=== PATIENT | male | born 1965 | race Caucasian/White ===

== ENCOUNTER 2017-01-19 07:41 | Inpatient (IN) | payer OTHER ==
[~2017-01-19 07:41] MED LIST: ACETAMINOPHEN 500 MG TAB PO ONE; GABAPENTIN 300 MG CAP PO ONE; ceFAZolin 2 GM/DEXTROSE 100 ML IV ONE
[2017-01-19] MEDS ORDERED: CHLORHEXIDINE GLUC HIBICLENS 118 ML BTL TP ONE (08:25)
[2017-01-19] MEDS ORDERED: THROMBIN (BOVINE) 5,000 UNIT VIAL TP ONE (08:25)
[2017-01-19] MEDS ORDERED: BACITRACIN 50,000 UNITS/10 ML SYR IRR ONE (08:26)
[2017-01-19] MEDS ORDERED: BUPIVACAINE 0.25% 30 ML SDV ONE (08:26)
[2017-01-19] MEDS ORDERED: GABAPENTIN 300 MG CAP ONE (08:32)
[2017-01-19] MEDS ORDERED: CEFAZOLIN 2 GM/DEXTROSE/100 ML BAG IV ONE (08:32)
[2017-01-19] MEDS ORDERED: ACETAMINOPHEN 500 MG TAB ONE (08:32)
[2017-01-19 08:35] LABS: % IMMATURE GRANULYOCYTES 0.4 % (0.0-1.1); ABSOLUTE IMMATURE GRANULOCYTES 0.03 10^3/uL (0.00-0.10); ADD DIFF? NO; ADD MORPH? NO; ADD SCAN? NO; ATYPICAL LYMPHOCYTE FLAG 10 (0-99); FRAGMENT RBC FLAG 0 (0-99); HEMATOCRIT 50.6 % (40.0-51.0); HEMOGLOBIN 18.1 g/dL (13.7-17.5); LEFT SHIFT FLG 0 (0-99); LIPEMIA HEMOLYSIS FLAG 90 (0-99); MEAN CELL HEMOGLOBIN 30.3 pg (27.9-34.1); MEAN CELL HEMOGLOBIN CONCENTR. 35.8 g/dL (32.4-36.7); MEAN CELL VOLUME 84.8 fL (81.5-99.8); MEAN PLATELET VOLUME 8.9 fL (8.7-11.7); PLATELET CLUMPS FLAG 10 (0-99); PLATELET COUNT 261 10^3/uL (150-400); RED BLOOD CELL COUNT 5.97 10^6/uL (4.40-6.38); RED CELL DISTRIBUTION WIDTH 12.8 % (11.5-15.2)
[2017-01-19] MEDS ORDERED: LR 1,000 ML IV ONE (08:44)
[2017-01-19] MEDS ORDERED: MIDAZOLAM 2 MG/2 ML VIAL IVP ONE (08:55)
--- NOTE | 2017-01-19 08:55 | PDANEPAE ---
ANE History of Present Illness C3-4 ACDF ANE Past Medical History - Cardiovascular History Hx Arrhythmias: Yes Cardiovascular History Comment: Afib - CONTROLLED SINCE APR 2016 - Pulmonary History Hx COPD: No Hx Asthma/Reactive Airway Disease: No Hx Recent Upper Respiratory Infection: No Hx Oxygen in Use at Home: No Hx Sleep Apnea: Yes Sleep Apnea Screening Result - Last Documented: Positive Pulmonary History Comment: POS NGHIA - CPAP - Neurologic History Hx Cerebrovascular Accident: No Hx Seizures: No Hx Dementia: No - Endocrine History Hx Diabetes: No - Renal History Hx Renal Disorders: No - Liver History Hx Hepatic Disorders: No - Neurological & Psychiatric Hx Hx Neurological and Psychiatric Disorders: No - Cancer History Hx Cancer: No Cancer History Comment: 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 - Congenital Disorder History Hx Congenital Disorders: No - GI History Hx Gastrointestinal Disorders: No - Other Health History Other Health History: none - Chronic Pain History Chronic Pain: No - Surgical History Prior Surgeries: R KNEE SURG ANE Review of Systems Review of systems is: negative Review of Systems: - Exercise capacity Exercise capacity: >=4 METS METS (RN): 4 METS ANE Patient History - Allergies Allergies/Adverse Reactions: No Known Allergies Allergy (Unverified 12/09/16 14:27) - Home Medications Home medications: home medication list seen and reviewed Home Medications: Digoxin 12/09/16 [Last Taken 01/19/17 06:00] Flecainide Acetate 12/09/16 [Last Taken 01/19/17 06:00] - NPO status NPO Status: no food or drink >8 hours NPO Since - Liquids (Date): 01/18/17 NPO Since - Liquids (Time): 23:00 NPO Since - Solids (Date): 01/18/17 NPO Since - Solids (Time): 15:00 - Anes Hx Anes Hx: no prior problems - Smoking Hx Smoking Status: Never smoked - Family Anes Hx Family Anes Hx: none Family Hx Anesthesia Complications: none ANE Labs/Vital Signs - Labs Result Diagrams: 01/19/17 08:25 - Vital Signs Blood Pressure: 153/90 Heart Rate: 74 Respiratory Rate: 16 O2 Sat (%): 94 Height: 193.04 cm Weight: 122.47 kg ANE Physical Exam - Airway Neck exam: FROM Mallampati Score: Class 1 - Pulmonary Pulmonary: no respiratory distress - Cardiovascular Cardiovascular: regular rate and rhythym - ASA Status ASA Status: II ANE Anesthesia Plan Anesthesia Plan: general endotracheal anesthesia
--- NOTE | 2017-01-19 09:06 | PDHPUP ---
History & Physical Update H&P update statement: This history and physical update is based on an assessment of the patient which was completed after admission or registration (within 24 hours), but prior to the surgery/procedure. H&P update: H&P reviewed & patient examined, no change in patient's condition since H&P completed
[2017-01-19] MEDS ORDERED: REMIFENTANIL HCL 1 MG VIAL ONE (09:29)
[2017-01-19] MEDS ORDERED: HYDROmorphONE/DILAUDID 2 MG/ML INJ ONE (09:29)
[2017-01-19] MEDS ORDERED: PROPOFOL/EMULSION 500 MG/50 ML BOTTLE IV ONE (09:29)
[2017-01-19] MEDS ORDERED: LIDOCAINE 2% 100 MG/5 ML SYR ONE (09:29)
[2017-01-19] MEDS ORDERED: ROCURONIUM 50 MG/5 ML VIAL ONE (09:29)
[2017-01-19] MEDS ORDERED: DEXAMETHASONE 4 MG/ML VIAL ONE (09:29)
[2017-01-19] MEDS ORDERED: ONDANSETRON 4 MG/2 ML VIAL ONE (09:29)
[2017-01-19] MEDS ORDERED: PROPOFOL 200 MG/20 ML VIAL ONE (09:29)
[2017-01-19] MEDS ORDERED: fentaNYL 100 MCG/2 ML INJ ONE (09:29)
[2017-01-19] MEDS ORDERED: PHENYLEPHRINE HCL 100 MCG/ML SYR ONE (10:23)
[2017-01-19] MEDS ORDERED: ONDANSETRON 4 MG/2 ML VIAL IVP PRN ×2 (10:33→12:04)
[2017-01-19] MEDS ORDERED: HYDROmorphONE/DILAUDID 1 MG/ML INJ IVP PRN (10:33)
[2017-01-19] MEDS ORDERED: DEXAMETHASONE 4 MG/ML VIAL IVP PRN (10:33)
[2017-01-19] MEDS ORDERED: fentaNYL 100 MCG/2 ML INJ IVP PRN (10:33)
[2017-01-19] MEDS ORDERED: LABETALOL HCL 50 MG/10 ML SYR IVP PRN (10:33)
[2017-01-19] MEDS ORDERED: OXYCODONE/APAP 5/325 TAB PO PRN (10:33)
[2017-01-19] MEDS ORDERED: ACETAMINOPHEN 500 MG TAB PO PRN (10:33)
[2017-01-19] MEDS ORDERED: MEPERIDINE 25 MG/ML SYR IVP PRN (10:33)
[2017-01-19] MEDS ORDERED: NALOXONE HCL 0.4 MG/ML INJ IVP PRN (10:33)
[2017-01-19] MEDS ORDERED: PROMETHAZINE HCL 25 MG/ML INJ IVP PRN (10:33)
[2017-01-19] MEDS ORDERED: HYDROCODONE/APAP 5/325 TAB PO PRN (10:33)
--- NOTE | 2017-01-19 10:34 | POSTANESTH ---
Post Anesthetic Evaluation Cardiovascular Status: Normal, Stable, Similar to Pre-Op Cond Respiratory Status: Similar to Pre-op Cond. Level of Consciousness/Mental Status: Can Participate in Eval, Mildly Sleepy, Arousable Pain Control: Adequate, Prn Tx Ordered Nausea/Vomiting Control: Adequate, Prn Tx Ordered Complications Possibly Related to Anesthesia: None Noted
[2017-01-19] MEDS ORDERED: ONDANSETRON DISINTEGRATING 4 MG TAB PO PRN (12:04)
[2017-01-19] MEDS ORDERED: LACTULOSE 20 GM/30 ML UDCUP PO PRN (12:04)
[2017-01-19] MEDS ORDERED: MAGNESIUM HYDROXIDE 30 ML UDCUP PO PRN (12:04)
[2017-01-19] MEDS ORDERED: BISACODYL 10 MG SUPP PR PRN (12:04)
--- NOTE | 2017-01-19 12:11 | SOAPPROG ---
SOAP Progress Note Assessment/Plan: Assessment: 51 yo M sp C3/4 ACDF with csf leak Plan: neuro: stable to ICU, keep lumbar drain open to drain at 10-20 ml/hour hard collar please call with neuro changes 01/19/17 12:09 Subjective: + neck pain, no arm pain, no headaches. Objective: Vital Signs Temp Pulse Resp BP Pulse Ox 37.3 C 74 16 153/90 H 94 01/19/17 08:38 01/19/17 09:34 01/19/17 09:34 01/19/17 09:34 01/19/17 09:34 Laboratory Results 01/19/17 08:25 awake, alert PERRL, no facial droop WONG x 4 + light touch ICD10 Worksheet Patient Problems: Problems Problem Status Onset Fusion of spine of cervical region Acute - ICD10 Problem Qualifiers (1) Fusion of spine of cervical region
[2017-01-19] MEDS: oxyCODONE IR 5 MG TAB PO PRN ×3 (14:17→22:03)
[2017-01-19] MEDS: ACETAMINOPHEN 500 MG TAB PO SCH ×2 (14:17→21:15)
[2017-01-19] MEDS: ceFAZolin 2 GM/DEXTROSE 100 ML IV SCH ×2 (14:17→21:16)
[2017-01-19] MEDS: NS W/ 20 KCl/L 1,000 ML IV SCH (14:18)
--- NOTE | 2017-01-19 15:37 | GOP ---
[f rep st] OPERATIVE REPORT DATE OF OPERATION: 01/19/2017 SURGEON: Darshan Ambrose MD NEUROSURGEON: Darshan Ambrose MD CLAIMS CLERK: SARAH Reynoso ANESTHESIA: General endotracheal. 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 Progressive cervical spondylitic myelopathy. 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 Progressive cervical spondylitic myelopathy. PROCEDURE PERFORMED: Complete C3-4 anterior cervical diskectomy and arthrodesis with a 12 mm structural PEEK interbody spacer and local autograft. Partial C4 vertebral corpectomy. Repair of cerebrospinal fluid leak. Placement of a 23 mm LnK CastleLoc-P anterior cervical plate with self-drilling screws at C3-4. Use of intraoperative microscopy and fluoroscopy. FINDINGS: ESTIMATED BLOOD LOSS: 50 cc. INDICATIONS: The patient is a 51-year-old man with myelopathic symptoms secondary to a large C3-4 disk herniation causing severe central canal stenosis and spinal cord compression. He presents now for surgical decompression and stabilization. DESCRIPTION OF PROCEDURE: After informed consent was obtained, the patient was taken to the operating room and placed in the supine position with the head in the halter retractor system. The anterior cervical region was prepped and draped in sterile fashion. After fluoroscopic localization of the correct levels, the subcutaneous and intramuscular tissues were infiltrated with local anesthesia. A horizontal incision was then created at the level of the C3-4 interspace after fluoroscopic localization. The incision was then carried down through the platysmal layer using monopolar electrocautery and carried in the avascular plane between the sternocleidomastoid and carotid sheath laterally and the strap muscles, trachea and esophagus medially, down to the prevertebral fascia, which was carefully incised with Metzenbaum scissors. The C3-4 interspace was identified and re-verified using intraoperative fluoroscopy. There was a very large calcified anterior disk herniation and osteophyte complex that were carefully removed and harvested for local autograft. The [place] distraction pins were then carefully inserted, and gentle distraction created across the interspace. A complete diskectomy was then performed with the straight and angled curettes, and further removal of the osteophytes with the [place] rongeurs, which were then saved for local autograft. The posterior longitudinal ligament was carefully opened on the left side and, unfortunately, on the right there was a very large calcified disk herniation that extended rostrally and caudally, but especially caudally down into the thecal sac. The large calcified disk herniation was protruding into the dura significantly, and it was very difficult to get around it. It was necessary to drill an extensive amount of bone off the C4 vertebral body, measuring approximately 50%, for a partial C4 vertebral corpectomy in order to get around the disk herniation that was causing severe spinal cord compression. Eventually, I was able to carefully dissect out the herniation and drill off portions of it, and then removed the remainder in its entirety. Unfortunately, there was a small piece of dura that was grown into the calcified disk herniation and there was no way to take the herniation out without removing that small piece of dura as well. Upon identifying the cerebrospinal fluid leak, this was patched with DuraGen and Gelfoam; the latter of which was then removed. There was no further leakage of CSF, and the remaining endplates were carefully prepared. An appropriately sized 9 mm structural PEEK interbody spacer packed with local autograft from the osteophytectomies and partial corpectomy was then placed in the interspace under fluoroscopic image guidance. The distraction was removed, and an appropriately sized 23 mm LnK CastleLoc-P anterior cervical plate was then placed and secured using self-drilling screws under fluoroscopic image guidance. Following re-verification of good position of the plate, screws and interbody spacer using biplanar fluoroscopy, the locking mechanisms were engaged. The wound was again copiously irrigated with antibiotic irrigation and closed in a layered fashion using interrupted Vicryl sutures followed by Steri-Strips on the skin. COMPLICATIONS: None. DISPOSITION: The patient was extubated and transferred to the recovery room in stable condition. /[id number]/MODL MTDD
[2017-01-19] MEDS: METHOCARBAMOL 750 MG TAB PO PRN (17:53)
[2017-01-19] MEDS: POLYETHYLENE GLYCOL 3350 17 GM PKT PO SCH ×2 (17:54→21:16)
[2017-01-19] MEDS: SENNOSIDES/DOCUSATE SODIUM TAB PO SCH (21:14)
[2017-01-19] MEDS: FAMOTIDINE 20 MG TAB PO SCH (21:14)
[2017-01-19] MEDS: FLECAINIDE ACETATE 100 MG TAB PO SCH (21:59)
[2017-01-20] MEDS: METHOCARBAMOL 750 MG TAB PO PRN ×4 (01:08→19:58)
[2017-01-20 04:27] LABS: % IMMATURE GRANULYOCYTES 0.4 % (0.0-1.1); ABSOLUTE IMMATURE GRANULOCYTES 0.05 10^3/uL (0.00-0.10); ADD DIFF? NO; ADD MORPH? NO; ADD SCAN? NO; ATYPICAL LYMPHOCYTE FLAG 0 (0-99); FRAGMENT RBC FLAG 0 (0-99); HEMATOCRIT 48.9 % (40.0-51.0); HEMOGLOBIN 17.1 g/dL (13.7-17.5); LEFT SHIFT FLG 0 (0-99); LIPEMIA HEMOLYSIS FLAG 90 (0-99); MEAN CELL HEMOGLOBIN 30.4 pg (27.9-34.1); MEAN CELL VOLUME 86.9 fL (81.5-99.8); MEAN PLATELET VOLUME 8.8 fL (8.7-11.7); PLATELET CLUMPS FLAG 50 (0-99); PLATELET COUNT 210 10^3/uL (150-400); RED BLOOD CELL COUNT 5.63 10^6/uL (4.40-6.38)
[2017-01-20] MEDS: ACETAMINOPHEN 500 MG TAB PO SCH ×3 (05:10→21:13)
[2017-01-20] MEDS: ceFAZolin 2 GM/DEXTROSE 100 ML IV SCH ×3 (05:10→21:12)
[2017-01-20 05:30] LABS: ANION GAP 12 mEq/L (8-16); CARBON DIOXIDE 20 mEq/l (22-31); CHLORIDE 108 mEq/L (97-110); CREATININE 0.9 mg/dL (0.7-1.3); GLOMERULAR FILTRATION RATE > 60; GLUCOSE 107 mg/dL (70-100); POTASSIUM 4.8 mEq/L (3.5-5.2); SODIUM 140 mEq/L (134-144)
[2017-01-20] MEDS: FAMOTIDINE 20 MG TAB PO SCH ×2 (08:01→20:00)
[2017-01-20] MEDS: SENNOSIDES/DOCUSATE SODIUM TAB PO SCH ×2 (08:01→20:00)
[2017-01-20] MEDS: POLYETHYLENE GLYCOL 3350 17 GM PKT PO SCH ×3 (08:01→21:12)
[2017-01-20] MEDS: DIGOXIN 250 MCG TAB PO SCH (08:03)
[2017-01-20] MEDS: FLECAINIDE ACETATE 100 MG TAB PO SCH ×2 (08:03→20:01)
--- NOTE | 2017-01-20 08:12 | NEUSURGPN ---
Assessment/Plan: Assessment: 51 yo M sp C3/4 ACDF with csf leak Plan: to ICU, keep lumbar drain open to drain at 10-20 ml/hour. Plan to d/c on Monday will need to hold Lovenox prior to pull. Continue hard collar PT/OT/CONTACT MANAGER Continue ELDON drain DVT prophx: TEDs, SCDs, Lovenox please call with neuro changes Subjective: cervical spine pain. Tolerating liquids okay. Having some increased discomfort with swallowing this morning. Objective: NAD A&Ox3 MAEx4 5/5 and equal in BUE and BLE. Incision c/d/i. Neck soft supple, mild swelling. LD site dry, clean, flat - Physician Patient Seen by : [facility] Physical Exam - Vitals, I&O, Labs I and O 01/19/17 01/20/17 01/21/17 05:59 05:59 05:59 Intake Total 1925 Output Total 2285 54 Balance -360 -54 Weight 122.4 kg Intake: Oral (ml) 1100 IV Intake (ml) 325 IV Infused (ml) 500 NS W/ 20 KCl/L 1,000 ml @ 500 75 mls/hr IV CONT STARR Rx #:[id number] Output: Urine (ml) 1950 Urinal 1950 CSF Drainage Amount 305 54 Lumbar Drain 305 54 ELDON Drain Output (ml) 30 Anterior Neck Nik[place]j 30 Echols Other: Number of Voids Urinal 2 Vital Signs Temp Pulse Resp BP Pulse Ox 37.1 C 76 17 139/73 H 96 01/20/17 07:57 01/20/17 08:03 01/20/17 07:57 01/20/17 07:57 01/20/17 07:57 Laboratory Results 01/20/17 04:10 01/20/17 04:10 ICD10 Worksheet Patient Problems: Problems Problem Status Onset Fusion of spine of cervical region Acute
--- NOTE | 2017-01-20 16:15 | ASMTCMCOM ---
CM Note CM Note Notes: Pt is s/p C3/4 ACDF, had dural tear and CSF leak. PT/OT have seen and cleared. Pt currently has a lumbar drain and is on IV Ancef. May d/c Monday if medically cleared. CM will follow for any d/c needs but anticpate d/c with no CM needs unless IV ABX are needed after d/c. Date Signed: 01/20/2017 04:14 PM Electronically Signed By:ROB Camarena
[2017-01-20] MEDS: NS W/ 20 KCl/L 1,000 ML IV SCH (21:12)
[2017-01-20] MEDS: diphenhydrAMINE 25 MG CAP PO PRN (21:15)
[2017-01-21] MEDS: METHOCARBAMOL 750 MG TAB PO PRN ×2 (04:07→18:56)
[2017-01-21] MEDS: ceFAZolin 2 GM/DEXTROSE 100 ML IV SCH ×3 (05:31→23:00)
[2017-01-21] MEDS: ACETAMINOPHEN 500 MG TAB PO SCH ×3 (05:31→21:43)
--- NOTE | 2017-01-21 06:56 | SOAPPROG ---
SOAP Progress Note Assessment/Plan: Assessment: 51 yo M POD #2 C3/4 ACDF with csf leak Plan: neuro: stable to ICU, keep lumbar drain open to drain at 10-20 ml/hour will remove lumbar drain in am PT/OT cervical x-rays pending hard collar please call with neuro changes 01/19/17 12:09 01/21/17 06:55 Subjective: neck pain improving, no arm pain. some achiness in legs. Objective: Vital Signs Temp Pulse Resp BP Pulse Ox 37.1 C 70 20 120/52 L 92 01/21/17 01:00 01/21/17 06:00 01/21/17 06:00 01/21/17 06:00 01/21/17 06:00 Laboratory Results 01/20/17 04:10 01/20/17 04:10 01/20/17 01/21/17 01/22/17 05:59 05:59 05:59 Intake Total 1925 750 Output Total 9759 1588 12 Balance -360 -2533 -12 AAOx4, +FC PERRL, EOMI, no facial droop 5/5 + light touch C/D/I ICD10 Worksheet Patient Problems: Problems Problem Status Onset Fusion of spine of cervical region Acute - ICD10 Problem Qualifiers (1) Fusion of spine of cervical region
[2017-01-21] MEDS: POLYETHYLENE GLYCOL 3350 17 GM PKT PO SCH ×3 (08:34→21:43)
[2017-01-21] MEDS: oxyCODONE IR 5 MG TAB PO PRN ×3 (08:36→23:04)
[2017-01-21] MEDS: DIGOXIN 250 MCG TAB PO SCH (08:37)
[2017-01-21] MEDS: FAMOTIDINE 20 MG TAB PO SCH ×2 (08:37→21:43)
[2017-01-21] MEDS: SENNOSIDES/DOCUSATE SODIUM TAB PO SCH ×2 (08:37→21:42)
[2017-01-21] MEDS: FLECAINIDE ACETATE 100 MG TAB PO SCH ×2 (08:38→23:00)
[2017-01-21] MEDS: diphenhydrAMINE 25 MG CAP PO PRN (21:42)
[2017-01-22] MEDS: ACETAMINOPHEN 500 MG TAB PO SCH ×2 (05:59→14:23)
[2017-01-22] MEDS: ceFAZolin 2 GM/DEXTROSE 100 ML IV SCH (06:00)
[2017-01-22 06:05] VITALS: TEMP 98.1
[2017-01-22] MEDS ORDERED: LIDOCAINE 1% 300 MG/30 ML SDV ONE (06:42)
[2017-01-22] MEDS ORDERED: ENOXAPARIN 40 MG/0.4 ML SYR SC SCH (09:00)
--- NOTE | 2017-01-22 09:05 | SOAPPROG ---
SOAP Progress Note Assessment/Plan: Assessment: 51 yo M POD #3 C3/4 ACDF with csf leak Plan: neuro: stable lumbar drain and ELDON removed this am PT/OT hard collar please call with neuro changes discharge home later today 01/19/17 12:09 01/21/17 06:55 01/22/17 09:02 01/22/17 09:05 Subjective: mild neck pain, no arm pain or weakness. no headaches. Objective: Vital Signs Temp Pulse Resp BP Pulse Ox 36.7 C 61 15 140/70 H 93 01/22/17 06:00 01/22/17 06:00 01/22/17 06:00 01/22/17 06:00 01/22/17 06:00 Laboratory Results 01/20/17 04:10 01/20/17 04:10 01/21/17 01/22/17 01/23/17 05:59 05:59 05:59 Intake Total 750 2259 Output Total 3283 1955 23 Balance -2533 304 -23 AAOx4, +FC PERRL, EOMI, no facial droop WONG x 4 + light touch C/D/I ICD10 Worksheet Patient Problems: Problems Problem Status Onset Fusion of spine of cervical region Acute - ICD10 Problem Qualifiers (1) Fusion of spine of cervical region
[2017-01-22] MEDS: POLYETHYLENE GLYCOL 3350 17 GM PKT PO SCH (09:35)
[2017-01-22] MEDS: SENNOSIDES/DOCUSATE SODIUM TAB PO SCH (09:35)
[2017-01-22] MEDS: FAMOTIDINE 20 MG TAB PO SCH (09:35)
[2017-01-22] MEDS: DIGOXIN 250 MCG TAB PO SCH (09:35)
[2017-01-22] MEDS: FLECAINIDE ACETATE 100 MG TAB PO SCH (09:36)
[2017-01-22 09:37] VITALS: PULSE 72
[2017-01-22 12:23] VITALS: BP 132/84; RESP 20; O2SAT 94
[2017-01-22] MEDS: oxyCODONE IR 5 MG TAB PO PRN (12:28)
[2017-01-22] MEDS: METHOCARBAMOL 750 MG TAB PO PRN (12:28)
== END 2017-01-22 13:30 | disposition home or self-care (01) | DRG 472 ==
LOC: FSGY 07:41 → F2N 12:05
PROVIDERS: ADMIT Neurological Surgery; ATTEND Neurological Surgery
DX: M48.02 Spinal stenosis, cervical region (principal); M47.12 Other spondylosis with myelopathy, cervical region; M50.21 Other cervical disc displacement, high cervical region; G97.41 Accidental puncture or laceration of dura during a procedure; I48.91 Unspecified atrial fibrillation
CPT/HCPCS: 92526-GN; 92610-GN; 97116-GP; 97161-GP; 97165-GO; 97535-GO; C1713; J0171; J0690; J1100; J1170; J1650; J2001; J2250; J2370; J2405; J2704; J3010